=== PATIENT | male | born 1995 | race Caucasian/White ===

== ENCOUNTER 2017-09-28 14:15 | Inpatient (IN) | payer BC, OTHER ==
--- NOTE | 2017-09-28 14:20 | HP ---
SUPERVISING PHYSICIAN: Loyd Esparza M.D. CHIEF COMPLAINT: Upper extremity muscle pain, elevated CPK. HISTORY OF PRESENT ILLNESS: Mr. Monteiro is a 22 year-old male patient who just recently started an upper extremity and abdominal workout within the last week. He started having extreme pain to his arms and presented to the clinic to Dr. Esparza's office for evaluation. Laboratory studies there indicated he had a CPK well over 119,000. He does have a history of previously having issues with Rhabdomyolysis having been admitted in February of 2015 at that time with a significantly elevated CPK of 117,000. The patient denies any chest pains or any abdominal pain or other complaints. Given the degree of increase in his creatinine kinase, he noted there is some red tinge to his urine as well, he is being admitted now for intravenous hydration and further treatment and evaluation with developing Rhabdomyolysis. He is admitted in stable condition. PAST MEDICAL HISTORY: 1. History of heart murmur. 2. Past issues with Rhabdomyolysis last hospitalized in 02/2015. 3. The patient denies any recent trauma. PAST SURGICAL HISTORY: 1. Left shoulder surgery. CURRENT MEDICATIONS: No medications listed. ALLERGIES: NO KNOWN DRUG ALLERGIES. FAMILY HISTORY: Positive for lung cancer and coronary artery disease. SOCIAL HISTORY: The patient lives in [place]. He attends [employer] classes. He does work as a branch services manager locally. He denies any illegal drug use but notes that he has drank in the recent days, but nothing excessively. He notes that he is current on all of his immunizations. REVIEW OF SYSTEMS: CONSTITUTIONAL: As noted in history of present illness, severe malaise but no fevers. No change in weight. HEENT: Denies any visual disturbances, decreased visual acuity or any history of ear pain, hearing loss, sore throat. NECK: No neck pain or stiffness. RESPIRATORY: Denies any shortness of breath, chest pains, cough. CARDIOVASCULAR: Denies any chest pains, palpitations or syncopal episodes although has a history of a heart murmur. ABDOMEN: No reported abdominal pain, nausea or vomiting. He does have some muscular pain with palpation but no actual discomfort. No diarrhea or constipation. GENITOURINARY: He has some noted hematuria but no dysuria or other urinary symptoms. NEUROLOGIC: No focal signs noted. No changes in mentation. PHYSICAL EXAMINATION: VITAL SIGNS: Temperature 97.2, pulse 96, blood pressure 132/76, respirations 18 , satting 98% on room air. GENERAL: The patient is well nourished, well hydrated. Appears to be comfortable in no acute distress. He is alert and oriented times three. HEENT: Tympanic membranes are clear bilaterally. Oropharynx is pink and moist without any lesions. NECK: Supple, non-tender. Full range of motion. No jugular venous distention. CHEST: Lungs are clear to auscultation bilaterally with no notable wheezing, rhonchi or rales. CARDIOVASCULAR: Regular rate and rhythm without appreciable murmurs, gallops, or rubs. ABDOMEN: Soft, non-tender with positive bowel sounds. EXTREMITIES: No clubbing, cyanosis or edema. He does have some pain on extension and flexion of both of his upper extremities and pain on generalized just palpation of triceps, biceps and muscles of the upper extremities. NEUROLOGIC: He is alert and oriented times three. LABORATORY: CBC showed to be within normal limits with hemoglobin 15.1, hematocrit 44.2, platelet count 316,000. White count 7,600. Blood gas analysis showed a normal pH of 7.42, bicarb was 24, PO2 was 78, PCO2 was 38, satting 97% on room air. Chemistries show normal electrolytes with BUN 8, creatinine 0.87, anion gap was low at 10, glucose 108, serum osmolality 274, uric acid normal at 5.2, calcium normal at 9.0, phosphorus and magnesium both normal, magnesium was 2.1, phosphorus 3.4. Bilirubin 0.3 with elevated AST 625 and ALT of 138, alkaline phosphatase was low at 40. Creatinine kinase was elevated at 119,250. Troponin was 0.02. Hepatitis panel was pending from the clinic. Urinalysis showed a large amount of blood with a pH of 7.0 and 30 of protein, otherwise within normal limits. Urine drug screen showed to be negative for all substances tested. No microbiology or radiographic studies were submitted. ASSESSMENT: 1. Exercise-induced Rhabdomyolysis requiring initiation of sodium bicarb infusion to alkalize urine to prevent any acute kidney injuries with progressing muscular fatigue and muscular aches and pains to the upper extremities. 2. Elevated liver functions to include AST and ALT, uncertain etiology, possibly related to excessive creatinine kinase levels with hepatitis panel pending from the clinic prior to admission. PLAN: The patient is to be admitted to the Medical/Surgical floor for initiation of intravenous fluids. Will initially start him on 2 liters of saline over 2 hours to be followed-up with initiation of a bicarb drip with D5W with 1-1/2 amps of bicarb to run at 200 mL per hour. Will monitor his creatinine kinase and kidney function closely. Should they not show improvement as expected, certainly will take in consideration of possibly transferring to [facility] for further management. I did discuss the case with Dr. Mcallister and he is in agreement with current plan of care at this point. Will provide pain management with Motrin as indicated avoiding any Tylenol containing medications. Will anticipate his length of stay to be at least 2 days or 3 depending on how well he clears the creatinine and returns to baseline status. Again, will closely monitor his output, recheck urine to keep his urine alkalotic to prevent any acute kidney injury by checking every 6 hours a CPK and urinalysis until he shows good stabilization of his creatinine levels as far as indicating they are returning to normal. Will also monitor his calcium levels closely as he is on a bicarb drip. Will continue to monitor and treat appropriately until discharge. Once discharged, he will need close clinical followup with Dr. Esparza for further evaluation of the recurrence of Rhabdomyolysis secondary to strenuous exercise. Until then, will monitor and treat appropriately. #[id number] [facility]
[2017-09-28] MEDS ORDERED: SODIUM CHLORIDE 0.9% (FLUSH) 10 ML SYG IV PRN (15:06)
[2017-09-28] MEDS ORDERED: ACETAMINOPHEN 325 MG TAB PO PRN (15:06)
[2017-09-28] MEDS ORDERED: SODIUM CHLORIDE 0.9% 1000ML 1,000 ML IVS ONE ×3 (15:13→23:00)
[2017-09-28] MEDS: IV SET AND CAP CHANGE INJ INJ SCH (15:32)
[2017-09-28] MEDS ORDERED: SODIUM BICARBONATE SYRINGE 50 MEQ/50 ML SYG IV ONE ×2 (18:30→23:11)
[2017-09-28] MEDS ORDERED: DEXTROSE 5% 1000ML 1,000 ML IVS ONE ×2 (18:30→23:07)
[2017-09-28] MEDS: SODIUM BICARBONATE SYRINGE 75 MEQ in DEXTROSE 5% 1000ML 1,000 ML IV PRN ×2 (18:34→23:54)
[2017-09-28] MEDS: SODIUM CHLORIDE 0.9% (FLUSH) 10 ML SYG IV SCH (21:10)
--- NOTE | 2017-09-28 21:36 | PCM.CORE ---
Physician DVT/VTE - Nurse DVT Assessment & Total Each Risk Factor is 1 Point: Obesity (BMI >25) DVT Assessment Score: 1 - 0-1 Low Risk Treatments: Early Ambulation, Low Risk no further treatment or intervention needed
[2017-09-29] MEDS ORDERED: SODIUM BICARBONATE SYRINGE 50 MEQ/50 ML SYG IV ONE (04:46)
[2017-09-29] MEDS ORDERED: DEXTROSE 5% 1000ML 1,000 ML IVS ONE ×4 (04:48→19:55)
[2017-09-29] MEDS: SODIUM BICARBONATE SYRINGE 75 MEQ in DEXTROSE 5% 1000ML 1,000 ML IV PRN (04:50)
[2017-09-29] MEDS: SODIUM CHLORIDE 0.9% (FLUSH) 10 ML SYG IV SCH ×2 (08:30→20:49)
[2017-09-29] MEDS ORDERED: SODIUM BICARBONATE VIAL 50 MEQ/50 ML VIAL IV ONE (09:34)
[2017-09-29] MEDS: SODIUM BICARBONATE VIAL 75 MEQ in DEXTROSE 5% 1000ML 1,000 ML IV PRN ×3 (09:46→20:32)
[2017-09-29] MEDS ORDERED: SODIUM BICARBONATE VIAL 50 MEQ/50 ML VIAL ONE ×2 (15:25→19:55)
--- NOTE | 2017-09-29 22:14 | PN ---
DATE: 09/29/17 SUPERVISING PHYSICIAN: Loyd Esparza M.D. SUBJECTIVE: The patient is doing well. He says his soreness is much less than previous on admission. He is having good output. He has had no nausea. He is not running any fevers. He has been up and ambulatory. He does continue on a bicarb drip and notes that his urine is starting to be less brown in color. OBJECTIVE: VITAL SIGNS: Temperature 98.8, pulse 55, blood pressure 144/78, respirations 16, satting 98% on room air. I's and O's show a negative balance of 2430 with 920 in, 3650 out. Weight 91 kg. CHEST: Lungs are clear to auscultation. HEART: Regular rate and rhythm. ABDOMEN: Soft, non-tender. Positive bowel sounds. EXTREMITIES: No clubbing, cyanosis or edema. NEUROLOGIC : He is alert and oriented times three. LABORATORY: Electrolytes remain within normal limits. Potassium 3.9, BUN 6, creatinine 0.7, calcium 8.7. Liver enzymes showing continued elevation at 651 for AST, ALT was 162 which is actually increased from admission. Alkaline phosphatase remains normal at 38 with CPK showing elevation at 8:00 last night at 121,443 and this morning it is starting to show a decrease. It is down to 108,550. Urinalysis last night showed a pH of 7.0 with still a large amount of blood. RADIOLOGY: No additional radiographic or microbiology specimens to review. ASSESSMENT: 1. Exercise induced Rhabdomyolysis requiring initiation of sodium bicarb infusion to alkalize urine to prevent any acute kidney injuries and progressive muscular fatigue with muscular aches and pains to the upper extremities showing improvement with continued treatment. 2. Elevated liver functions including AST and ALT, uncertain etiology, possibly related to excessive creatinine kinase levels with hepatitis panel pending from the clinic prior to admission showing to be continued elevated despite aggressive fluid management. PLAN: The patient is doing well. He will continue on IV fluids with sodium bicarb drip with a liter of D5W. Will add 1-1/2 amps of bicarb for a total of 75 mEq and monitor closely. His CK is showing some decrease now. Anticipate hopefully he will show some rapid decrease and be able to discharge tomorrow, but continue to monitor and treat closely. The plan would be to discharge once he gets below 5,000 on his CK levels. Until that point, will continue to monitor and treat appropriately. Again, will monitor his electrolytes, calcium and magnesium levels closely and his urine pH as he progresses through his treatment. Until discharge, will monitor and treat appropriately. [facility][id number] [facility]
[2017-09-29] MEDS ORDERED: SODIUM CHLORIDE 0.9% 1000ML 1,000 ML IVS ONE (22:30)
[2017-09-30] MEDS ORDERED: SODIUM BICARBONATE VIAL 50 MEQ/50 ML VIAL ONE ×5 (00:27→23:58)
[2017-09-30] MEDS ORDERED: DEXTROSE 5% 1000ML 1,000 ML IVS ONE ×6 (00:28→23:58)
[2017-09-30] MEDS: SODIUM BICARBONATE VIAL 75 MEQ in DEXTROSE 5% 1000ML 1,000 ML IV PRN ×4 (00:35→19:28)
[2017-09-30] MEDS: SODIUM CHLORIDE 0.9% (FLUSH) 10 ML SYG IV SCH ×2 (09:53→19:29)
[2017-09-30] MEDS: SODIUM CHLORIDE 0.9% 1000ML 1,000 ML IVS PRN ×4 (09:54→22:47)
--- NOTE | 2017-09-30 19:58 | PN ---
DATE: 09/30/17 SUPERVISING PHYSICIAN: Loyd Esparza M.D. SUBJECTIVE: The patient is doing well. He has had no pains, aches or other complaints. He is frustrated that his CPK level is not dropping significantly so that he can be discharged home. I did explain to him that eventually it would start dropping and once it got below 10,000 we would be able to discharge him home, but until that point he was at risk for kidney injury. He has had well over 10 liters of fluid since admission and is diuresing well. His urine is now clear, but his CPK remains significantly elevated. All his other electrolytes remain within normal limits as he remains on bicarb drip. OBJECTIVE: VITAL SIGNS: Temperature 98.4, pulse 63, blood pressure 125/81, respirations 16, satting 98% on room air. I's and O's today show a negative balance of 2840 with 2810 in, 5650 in the last 24 hours out. Weight is 94.5 kg. CHEST: Clear to auscultation. HEART: Regular rate and rhythm. ABDOMEN: Soft, non-tender. Positive bowel sounds. EXTREMITIES: No clubbing, cyanosis or edema. NEUROLOGIC: He remains alert and oriented times three. LABORATORY: His electrolytes remain within normal limits. Multiple CPKs have been completed since admission. It did max out at 123,605 with the last one being at 1300 today at 108,521. His magnesium was normal at 2.0, calcium remains within normal limits at 9.1, sodium 140. Urine pH continues to show 8.0 with being yellow and clear with a continued large amount of blood on dipstick with no RBCs seen on microscopic exam. ASSESSMENT: 1. Exercise induced Rhabdomyolysis requiring initiation and continuation of sodium bicarb infusion to alkalize urine in efforts to prevent acute kidney injury and progressive muscular fatigue and muscular aches and pain to the upper extremities continuing to show persistent elevated CPK levels with continued treatment required. 2. Elevated liver functions on admission, including AST and ALT, uncertain etiology possibly related to excessive creatinine kinase levels with hepatitis panel pending from the clinic on admission requiring continuation of monitoring. PLAN: Will continue with bicarb drip with D5W 1 liter and 1.5 ounce of bicarb for a total of 75 mEq that will run at 200 an hour. We are closely monitoring his CK levels as well as BMP for his electrolytes, including calcium and his urine for maintaining an alkaline pH. The plan is to discharge the patient once his CK levels get below 10,000. Until then, will continue to monitor and treat appropriately. #[id number] [facility]
[2017-10-01] MEDS: SODIUM BICARBONATE VIAL 75 MEQ in DEXTROSE 5% 1000ML 1,000 ML IV PRN ×5 (01:36→23:53)
[2017-10-01] MEDS: SODIUM CHLORIDE 0.9% 1000ML 1,000 ML IVS PRN ×2 (02:17→05:44)
[2017-10-01] MEDS ORDERED: SODIUM BICARBONATE VIAL 50 MEQ/50 ML VIAL ONE ×4 (04:19→22:25)
[2017-10-01] MEDS ORDERED: DEXTROSE 5% 1000ML 1,000 ML IVS ONE ×4 (04:21→22:25)
[2017-10-01] MEDS: SODIUM CHLORIDE 0.9% (FLUSH) 10 ML SYG IV SCH ×2 (09:16→21:38)
[2017-10-01] MEDS ORDERED: POTASSIUM CHLORIDE INJ 20 MEQ 20 MEQ in SODIUM CHLORIDE 0.9% 1000ML 1,000 ML IVS ONE (09:47)
[2017-10-01] MEDS ORDERED: POTASSIUM CHLORIDE 20mEq 10ML VIAL IV ONE (09:53)
[2017-10-01] MEDS: IV SET AND CAP CHANGE INJ INJ SCH (15:30)
[2017-10-01] MEDS ORDERED: KCL 20MEQ/0.45% NS 1,000 ML IVS ONE (18:12)
--- NOTE | 2017-10-01 18:46 | PN ---
DATE: 10/01/17 SUPERVISING PHYSICIAN: Loyd Esparza M.D. SUBJECTIVE: The patient continues to do well. He has had no swelling. Has decreased in his muscle aches to his upper extremities. He has been ambulating without any problems. His I's and O's are well balanced. He has had well over 13 liters of fluid in and approximately a little over 13 liters out. His CPK continues to show an elevated level but is starting to respond nicely to treatment with a bicarb drip and ongoing saline infusions. OBJECTIVE: VITAL SIGNS: Temperature 96.6, pulse 49, blood pressure 139/82, respirations 18, satting 97% on room air. CHEST: Clear to auscultation. HEART : Regular rate and rhythm. ABDOMEN: Soft, non-tender. Positive bowel sounds. EXTREMITIES: No clubbing, cyanosis or edema. NEUROLOGIC: He is alert and oriented times three. LABORATORY: CPK at 9:00 last night was 104,895. On the morning labs, he was showing a mild hypokalemia with potassium 3.4, calcium was normal at 8.5. His CPK had gone down to 74,273. I also repeated once again 6 hours later, BNP was showing to be normal with potassium 3.6, creatinine 0.78, BUN less than 5, calcium 8.8, CPK had only decreased minimally and was down to 74,041. ASSESSMENT: 1. Exercise induced Rhabdomyolysis requiring initiation and continuation of sodium bicarb infusion for alkalinization of urine in efforts to prevent acute kidney injury and progressive muscle fatigue and muscle aches with the patient showing a slow decrease in his CPK levels requiring ongoing treatment. 2. Elevated liver functions on admission with an AST and ALT elevated, uncertain etiology possibly related to elevated creatinine kinase with hepatitis panel pending from the clinic on admission requiring continuation of monitoring. PLAN: I was hoping to discharge the patient today, but again his CPK is remaining elevated. Will continue with his bicarb drip with D5W 1 liter and 1.5 amps of bicarb or 75 mEq per liter to run at 200. Will continue to monitor his CK levels about every 6 to 8 hours as well as a BNP and initially before he discharges, again repeat a CMP to recheck his liver functions. Once his CK is below at least 10,000, we can hopefully discharge at that point. Until then, will continue to monitor and treat appropriately. [facility][id number] [facility]
[2017-10-01] MEDS: KCL 20MEQ/0.45% NS 1,000 ML IVS PRN (18:54)
[2017-10-02] MEDS: KCL 20MEQ/0.45% NS 1,000 ML IVS PRN ×2 (02:30→20:58)
[2017-10-02] MEDS ORDERED: DEXTROSE 5% 1000ML 1,000 ML IVS ONE ×2 (05:27→20:36)
[2017-10-02] MEDS ORDERED: SODIUM BICARBONATE VIAL 50 MEQ/50 ML VIAL ONE ×2 (05:29→20:36)
[2017-10-02] MEDS: SODIUM BICARBONATE VIAL 75 MEQ in DEXTROSE 5% 1000ML 1,000 ML IV PRN ×3 (05:38→20:58)
[2017-10-02] MEDS: SODIUM CHLORIDE 0.9% (FLUSH) 10 ML SYG IV SCH ×2 (09:00→20:33)
[2017-10-02] MEDS ORDERED: SODIUM BICARBONATE 650 MG TAB PO ONE ×2 (11:00→13:00)
--- NOTE | 2017-10-02 12:10 | PN ---
DATE: 10/02/17 SUBJECTIVE: Today is the fourth day of the patient's hospitalization. He is active. Good appetite. Good fluid intake. Good urine output. Much less muscle soreness. He is able to move his upper extremity muscles through an entire range of motion without significant discomfort. Appetite is improving. Family is present. OBJECTIVE: Afebrile, pulse 42, blood pressure 121/68, pulse oximetry 97% on room air. LUNGS: Clear. HEART: Tones regular. ABDOMEN: Soft. No abdominal pain or organomegaly evident at this time. Awaiting hepatitis panel from Dr. Esparza's office. Will check on it tomorrow. LABORATORY: Repeat laboratory is performed today and shows his potassium is 3.9 , BUN 8, creatinine 0.71. AST is 592, ALT 337. CK is down to 47,300 from 59, 000 last evening at 9:00 PM. Albumin 3.4. Urine pH as of 2 days ago was 8. Urine drug screen is negative. ASSESSMENT: 1. Exercise induced acute Rhabdomyolysis requiring initiation and continuation of bicarbonate for alkalinization of the urine as well as fluid challenge to prevent acute kidney injury. Showing slight improvement yet still with levels well within the range that can result in acute kidney injury if not treated, continued on a treatment program. 2. Elevated liver functions showing slight improvement of undetermined etiology with hepatitis panel pending. PLAN: The patient and his family were very much interested in the possibility of a family pass for the patient, today being . The patient is able to ambulate completely normally, able to move all extremities and is in no discomfort. He is cooperative and tolerating his current program quite well. At this time, his IVs will be held until tonight at 2000 when they will be resumed. We have decreased the total volume of fluid and will continue on bicarb as well as saline infusions in an effort to help prevent significant acute kidney injury from precipitation of the muscle pigments. This whole process is discussed at length with the family and the patient. The patient will be given some oral potassium to continue supplementation while gone. He will also be given 1300 mg of sodium bicarbonate p.o. now as well as at 1300, 1700 and 2000 hours today at which time the sodium bicarb infusion will be continued. Recheck laboratory in the morning. Close followup necessary with the specialist and with Dr. Esparza to evaluate why various pushups, pullups and posturing in his exercise fitness program of only one episode has resulted in this significant Rhabdomyolysis episode. #[id number] [facility]
[2017-10-02] MEDS ORDERED: KCL 20MEQ/0.45% NS 1,000 ML IVS ONE (20:36)
[2017-10-03] MEDS ORDERED: POTASSIUM CHLORIDE 20 MEQ TAB ONE (07:46)
[2017-10-03] MEDS ORDERED: KCL 20MEQ/0.45% NS 1,000 ML IVS ONE ×2 (07:47→17:29)
[2017-10-03] MEDS ORDERED: SODIUM BICARBONATE VIAL 50 MEQ/50 ML VIAL ONE ×2 (07:48→15:21)
[2017-10-03] MEDS ORDERED: DEXTROSE 5% 1000ML 1,000 ML IVS ONE ×2 (07:48→15:21)
[2017-10-03] MEDS: KCL 20MEQ/0.45% NS 1,000 ML IVS PRN ×2 (08:09→19:18)
[2017-10-03] MEDS: SODIUM BICARBONATE VIAL 75 MEQ in DEXTROSE 5% 1000ML 1,000 ML IV PRN ×2 (08:10→17:48)
[2017-10-03] MEDS: SODIUM CHLORIDE 0.9% (FLUSH) 10 ML SYG IV SCH ×2 (09:37→22:53)
[2017-10-03] MEDS ORDERED: POTASSIUM CHLORIDE 10 MEQ TAB PO ONE (11:00)
--- NOTE | 2017-10-03 13:46 | PN ---
DATE: 10/03/17 SUBJECTIVE: The patient is sitting up, able to walk around the room. No significant muscle pain at this time. He tolerated his home pass on yesterday quite well. He continues on bicarb potassium parenteral fluids today in anticipation of reevaluation in the morning. OBJECTIVE: LUNGS: Clear. HEART: Regular. MUSCULOSKELETAL: No significant muscle tenderness upon palpation. LABORATORY: Chemistries are within normal limits with a potassium of 4.1, BUN 9 , creatinine 0.83. CK has reduced from 47,300 to 26,500 this morning, showing a significant continued reduction. ASSESSMENT: 1. Exercise induced acute rhabdomyolysis requiring initiation and continuation of bicarbonate for alkalinization of the urine as well as fluid challenge to prevent acute kidney injury. Showing slight improvement yet still with levels well within the range that can result in acute kidney injury if not treated, continued on a treatment program. 2. Elevated liver functions showing slight improvement of undetermined etiology with hepatitis panel pending. PLAN: The patient's IVs will continue today. Increase activity level of assist with DVT prophylaxis and encouraged to breathe deeply. Recheck of liver enzymes and muscle enzymes in the morning. If significantly reduced on the CPK down to 10,000 +/-, then consider further outpatient management and followup. He is followed in Dr. Esparza's clinic. Continue with good fluid intake to keep urine dilute. May be able to go home without bicarbonate supplementation. Special attention to evaluate the liver in the morning. Await hepatitis panel from the [facility] clinic when completed. Reevaluate. Special attention to preventing this from happening again. May benefit from specialty input to see if there is a specific muscular sensitivity and disorder that may have contributed to the significant rhabdomyolyses present. #[id number] [facility]
[2017-10-04] MEDS ORDERED: SODIUM BICARBONATE VIAL 50 MEQ/50 ML VIAL ONE (03:56)
[2017-10-04] MEDS ORDERED: DEXTROSE 5% 1000ML 1,000 ML IVS ONE (03:56)
[2017-10-04] MEDS: SODIUM BICARBONATE VIAL 75 MEQ in DEXTROSE 5% 1000ML 1,000 ML IV PRN (03:58)
[2017-10-04] MEDS ORDERED: KCL 20MEQ/0.45% NS 1,000 ML IVS ONE (06:23)
[2017-10-04] MEDS: KCL 20MEQ/0.45% NS 1,000 ML IVS PRN (06:26)
[2017-10-04] MEDS: SODIUM CHLORIDE 0.9% (FLUSH) 10 ML SYG IV SCH (08:57)
[2017-10-04 10:21] VITALS: BP 143/92; TEMP 97.6; O2SAT 98
--- NOTE | 2017-10-24 08:32 | DS ---
SUPERVISING PHYSICIAN: Blane Pérez MD DISCHARGE DIAGNOSIS: 1. Exercise induced acute rhabdomyolysis requiring initiation and continuation of bicarbonate for length of time for alkalinization of the urine as well as multiple fluid challenges to prevent acute kidney injury with the patient showing improvement in CPK levels with good output with no evidence of kidney damage. 2. Elevated liver functions, showing improvement, of undetermined etiology with hepatitis panel pending at time of discharge from the clinic prior to admission. REASON FOR HOSPITALIZATION: Mr. Monteiro is a 22-year-old male patient of Dr. Esparza. He was seen in the clinic for evaluation of extreme upper arm pain after working out. He noted he had recently started upper extremity and abdominal workouts within the last week. In Dr. Esparza's office, laboratory studies indicated CPK level was over 119,000. He does have a history of previously having issues with rhabdomyolysis having similar episode in February of 2015 and at that time CPK was 117,000. The patient denied any chest pains or any abdominal pain or other complaints on admission. Given the degree of increase in his creatinine kinase, he noted there is some red tinge to his urine as well, he was admitted for intravenous hydration and further treatment and evaluation with developing rhabdomyolysis to prevent any kidney damage. He was admitted in stable condition. LABORATORY : CBC as within normal limits with a white count of 7,600. Blood gas analysis showed pH 7.42, PO2 38, PCO2 78, bicarb 24. Chemistry showed electrolytes on admission after his admission process were within normal limits. Creatinine on admission was 0.71 with BUN 7. At discharge, creatinine was 0.83 with BUN 11. Liver functions did show elevation and on admission initial enzymes showed AST 592, ALT 337, normal alkaline phosphatase. Repeat prior to discharge, enzymes still remained elevated, but returning to baseline with AST 233, ALT 258. Initial CPK level on admission to the Medical/Surgical Floor was 108,521. After initiation of IV therapy bicarb drip prior to discharge, he had gone down to 12,878. Urinalysis continued to show large amount of blood up until the last day of admission and at that time was negative for any blood. PH initially on admission was 7.0. After initiation of bicarb drip, it had gone up to 8.0. Toxicology screen showed negative drug screen as tested. MICROBIOLOGY: No specimens submitted. RADIOLOGY: EKG on admission showed normal sinus rhythm with an incomplete bundle branch block, no ST-T wave changes. No radiographic studies were performed. HOSPITAL COURSE: Mr. Monteiro was admitted as above for rhabdomyolysis acutely secondary to extreme exercising. He was started on bicarb drip after consulting with , nephrology. He remained on bicarb drip until discharge and was showing good return of his CPK levels to baseline creatinine and had cleared urine and last urine on discharge was showing no evidence of any blood or pigments. He remained stable and remained with good kidney function. It was felt he was stable enough to be discharged to continue with outpatient treatment plan. PLAN: Mr. Monteiro was discharged on 10/04/[address] Esparza in the clinic on 10/10/17 at 8:45. He was to resume his usual diet. He was to increase his activity his tolerated, but no strenuous exercising until seen in the clinic. He was to have a lab draw on the Monday after discharge on at the hospital for CPK level and CMP. He was encouraged to continue with fluids to prevent dehydration and if he should notice any change in his urine, such as dark appearance, he was to return to the hospital or notify Dr. Esparza. He was also given warnings to return to the hospital should he have any concerning symptoms. He was warned to stay away from Motrin or any ibuprofen until he was cleared by the clinic. At discharge, he was started on bicarbonate tablets 2 tablets 3 times a day for 7 days. Discharge condition was stable and improved. #[id number] [facility]
== END 2017-10-04 13:44 | disposition home or self-care (01) | DRG 566 ==
LOC: MS 14:15
PROVIDERS: ADMIT Nurse Practitioner Family; ATTEND Nurse Practitioner Family
DX: T79.6XXA Traumatic ischemia of muscle, initial encounter (principal); X50.0XXA Overexertion from strenuous movement or load, initial encounter; R74.8 Abnormal levels of other serum enzymes; I45.4 Nonspecific intraventricular block

== ENCOUNTER → 2017-09-28 | Outpatient (CLI) | payer BC, OTHER | END | disposition home or self-care (01) | LOC: GMAM 12:04 | PROVIDERS: ATTEND Family Medicine | DX: M79.1 Myalgia (principal) ==

== ENCOUNTER → 2017-10-09 | Outpatient (CLI) | payer BC | LOC: LAB.O 11:44 | PROVIDERS: ATTEND Nurse Practitioner Family | DX: M62.82 Rhabdomyolysis (principal) ==

== ENCOUNTER → 2017-10-12 | Outpatient (CLI) | payer BC ==
--- NOTE | 2017-10-12 14:57 | US ---
EXAM DESCRIPTION: Liver: ULTRASOUND. CLINICAL HISTORY: ELEVATED LFT'S COMPARISON: None. TECHNIQUE: Transabdominal scannin-dimensional and Doppler modes.. A large patient body habitus. FINDINGS: The gallbladder is normal in size, shape, and echogenicity, with no intraluminal stones or sludge. No fluid around the gallbladder. No wall thickening. 2.1 mm. Common bile duct caliber is 3.6 mm which is within normal limits. . No stones in the visualized portion of the duct. Not tender with transducer pressure. The liver demonstrates normal echogenicity; contour of the liver capsule is smooth where seen. No fluid around the liver. Intrahepatic biliary ducts are non-dilated. Craniocaudal dimension in the mid-clavicular axis is 16.7 cm. Pancreas head, body, tail well visualized due to intestinal gas. Duct was not seen. Blood flow not evaluated in the dano hepatis. Abdominal aorta proximal not measured. IVC visualized and normal caliber. Right kidney measures 9.6 x 5.7 x 4.9 cm. Normal mid renal cortical thickness. Echogenicity normal with no hydronephrosis, no large calcifications, and no perinephric fluid. Contour smooth and vascularity normal. Proximal ureter not visualized. IMPRESSION: 1. Normal ultrasound of the gallbladder liver and intrahepatic and extrahepatic ducts. 2. Pancreas was not well visualized. No ascites. 3. Normal ultrasound of the right kidney. Electronically signed by: Nikolas Serra MD 10/12/2017 2:56 PM [employer]
== END | disposition home or self-care (01) ==
LOC: US 07:55
PROVIDERS: ATTEND Family Medicine
DX: M62.82 Rhabdomyolysis (principal); R94.5 Abnormal results of liver function studies

== ENCOUNTER 2019-01-22 18:35 | Emergency (ER) | payer BC ==
[2019-01-22 18:51] VITALS: TEMP 97.8
[2019-01-22] MEDS ORDERED: TETANUS,DIPHTHERIA,PERTUSSIS 1 EA SYG IM ONE (19:00)
[2019-01-22] MEDS ORDERED: CHLORHEXIDINE GLUCONATE 4 % 15 ML UD TOP ONE (19:15)
--- NOTE | 2019-01-22 19:19 | ED.PDOC ---
History of Present Illness - General Source: patient Exam Limitations: no limitations - History of Present Illness Initial Comments: Andi Monteiro 23 y/o male stated that he accidentally slammed the door on a dry kiln loader and left got caught in between.Has sharp pain and laceration on his left 5th digit. Timing/Duration: 1-3 hours Severity: moderate Improving Factors: rest Worsening Factors: movement Associated Symptoms: other - see hpi <Zafar Izquierdo H - Last Filed: 01/22/19 19:12> <Arjun Bailey - Last Filed: 01/22/19 20:40> - General Chief Complaint: Trauma Stated Complaint: L 5th finger injury Time Seen by Provider: 01/22/19 19:12 - History of Present Illness Allergies/Adverse Reactions: Allergies NO KNOWN ALLERGY Allergy (Verified 01/22/19 18:48) Home Medications: Ambulatory Orders Cephalexin 750 mg PO TID 7 Days #14 cap 01/22/19 Review of Systems - Review of Systems Musculoskeletal: States: see HPI Skin: States: see HPI All other Systems: Reviewed and Negative, No Change from Baseline <Zafar Izquierdo H - Last Filed: 01/22/19 19:12> Past Medical History (General) - Patient Medical History Hx Seizures: No Hx Stroke: No Hx Dementia: No Hx Asthma: No Hx of COPD: No Hx Cardiac Disorders: No Hx Congestive Heart Failure: No Hx Pacemaker: No Hx Hypertension: No Hx Thyroid Disease: No Hx Diabetes: No Hx Gastroesophageal Reflux: No Hx Renal Disease: No Hx Cancer: No Hx of HIV: No Hx Hepatitis C: No Hx MRSA: No Surgical History: other - right shoulder - Vaccination History Hx Tetanus, Diphtheria Vaccination: - 01/22/19 Hx Influenza Vaccination: No Hx Pneumococcal Vaccination: No - Social History Hx Tobacco Use: No Hx Alcohol Use: Yes - Occasional Hx Substance Use: No Hx Substance Use Treatment: No Hx Depression: No Hx Physical Abuse: No Hx Emotional Abuse: No <Zafar Izquierdo H - Last Filed: 01/22/19 19:12> Family Medical History - Family History Mother Family History: No Known Living Status: Still Living Hx Family Asthma: No Hx Family Congestive Heart Failure: No Hx Family Hypertension: No Hx Family Stroke: No Hx Cardiac Disease: No Hx Family Diabetes: No Hx Family Cancer: No Father Living Status: Still Living Hx Family Asthma: No Hx Family Congestive Heart Failure: No Hx Family Hypertension: No Hx Family Stroke: No Hx Cardiac Disease: No Hx Family Diabetes: No Hx Family Cancer: No <TimboUlicesdelilah - Last Filed: 01/22/19 19:12> Physical Exam - Physical Exam General Appearance: Alert, Comfortable, No apparent distress Eye Exam: bilateral normal Ears, Nose, Throat: normal ENT inspection Neck: supple Respiratory: lungs clear Cardiovascular/Chest: normal peripheral pulses, regular rate, rhythm, no murmur Peripheral Pulses: radial,right: 2+, radial,left: 2+ Gastrointestinal/Abdominal: non tender, soft Back Exam: normal inspection Extremity: other - 1.5 cm laceration distal phalanx 5th digit full rom fingers left hand neurovascular intact distally Neurologic: alert, oriented x 3 Skin Exam: normal color Lymphatic: no adenopathy <Ulices Izquierdodelilah - Last Filed: 01/22/19 19:12> Progress - Progress Progress: 01/22/19 19:26 Vital Signs - 8 hr 01/22/19 18:35 Temperature 97.8 F Pulse Rate [ 71 Right Radial] Respiratory 20 Rate Blood Pressure 149/93 [Left Arm] O2 Sat by Pulse 99 Oximetry <TimboUlicesdelilah - Last Filed: 01/22/19 19:12> - EKG/XRAY/CT XRAY: hand - left no fracture no FB <Arjun Bailey R - Last Filed: 01/22/19 20:40> Procedures - Laceration/Wound Repair Left Finger Wound Length (cm): 2 - v sahaped laceration 5th digit distal phalanx Wound's Depth, Shape: irregular, flap, contused tissue Wound Explored: no foreign body removed Irrigated w/ Saline (cc's): 50 Betadine Prep?: No - hibiclens Anesthesia: 1% Lidocaine Volume Anesthetic (cc's): 8 - digital nerve block done Wound Repaired With: sutures Suture Size/Type: 4:0, prolene Number of Sutures: 5 Layer Closure?: No - suture ligation of bleeders with 5-0 vicryl Sterile Dressing Applied?: Yes Splint Applied?: No <Arjun Bailey R - Last Filed: 01/22/19 20:40> Departure <TimboBullloretta - Last Filed: 01/22/19 19:12> - Departure Time of Disposition: 20:35 <Arjun Bailey R - Last Filed: 01/22/19 20:40> - Departure Clinical Impression: Laceration of finger of left hand Qualifiers: Encounter type: initial encounter Finger: little finger Damage to nail status: without damage Foreign body presence: without foreign body Qualified Code(s): S61.217A - Laceration without foreign body of left little finger without damage to nail, initial encounter Disposition: Discharge to Home or Self Care Departure Forms: ED Discharge - Pt. Copy, Patient Portal Self Enrollment Instructions: Laceration Repair With Stitches (DC), Laceration Infection (DC) Referrals: Loyd Esparza MD [Primary Care Provider] - 1-2 Weeks Prescriptions: Cephalexin 750 mg PO TID 7 Days #14 cap Home Medications: Ambulatory Orders Cephalexin 750 mg PO TID 7 Days #14 cap 01/22/19 Additional Instructions: Removal of stitches 04 February 2019 [facility];Return to Emergency room as needed
--- NOTE | 2019-01-22 19:22 | RAD ---
EXAM DESCRIPTION: XR Fingers,Left CLINICAL HISTORY: 23 years Male injury, smashed in door TECHNIQUE: Three views of the left fifth digit are provided. COMPARISON: No prior exams provided for comparison. FINDINGS: There is a soft tissue laceration at the radial, palmar aspect of the left fifth digit distally. No radiodense foreign body. No acute fracture or dislocation. No aggressive osseous lesion. IMPRESSION: Soft tissue laceration of the radial, palmar aspect of the left fifth digit distally. No radiodense foreign body, fracture, or dislocation. Electronically signed by: Jennifer Ambriz MD 01/22/2019 7:18 PM CDT
[2019-01-22] MEDS ORDERED: LIDOCAINE 1% 10 ML VIAL INJ ONE (19:52)
[2019-01-22] MEDS ORDERED: HYDROCOD/APAP 10/325 (ER DISP) # 3 tablets PO ONE (20:37)
[2019-01-22] MEDS ORDERED: CEPHALEXIN MONOHYDRATE 500 MG CAP PO ONE (20:39)
[2019-01-22 20:47] VITALS: BP 146/73; O2SAT 97
== END 2019-01-22 20:46 | disposition home or self-care (01) ==
LOC: ER 18:35
DX: S61.217A Laceration without foreign body of left little finger without damage to nail, initial encounter (principal); W23.0XXA Caught, crushed, jammed, or pinched between moving objects, initial encounter; Y92.9 Unspecified place or not applicable